=== PATIENT | female | born 1960 | race Caucasian/White ===

== ENCOUNTER 2022-09-16 08:59 | Outpatient (CLI) | payer MEDICAID, SELFPAY ==
[2022-09-16 08:47] LABS: Hematocrit 41.8 % (33.0-51.0); Hemoglobin* 13.9 gm/dL (12.0-16.0); Mean Corpuscular HGB Conc 33 gm/dL (32-36); Mean Corpuscular Hemoglobin 30 pg (26-34); Mean Corpuscular Volume 91 fL (80-100); Platelet Count* 187 K/uL (140-440); RDW Coefficient of Variation % 11.7 % (11.5-15.5); White Blood Count* 4.64 K/uL (4.50-11.00)
[2022-09-16 08:48] LABS: Basophils Percent Auto 0.6 % (0.0-3.0); Eosinophils Percent Auto 3.9 % (0.0-7.0); Immature Granulocytes Pct Auto 0.2 %; Lymphocytes Percent Auto 26.5 % (20-44); Monocytes Percent Auto 6.5 % (0.0-11.0); Neutrophils Percent Auto 62.3 % (42.0-72.0); Slide Review Reflex No
[2022-09-16 09:47] LABS: Chloride* 108 mmol/L (96-114)
[2022-09-16 09:48] LABS: Albumin* 4.3 g/dL (3.3-5.0); Potassium* 4.7 mmol/L (3.6-5.1); Sodium* 141 mmol/L (135-149)
[2022-09-16 09:50] LABS: Cholesterol* 208 mg/dL (90-199); Creatinine* 0.9 mg/dL (0.5-1.5); Estimated Glomerular Filt Rate 71 ml/min
[2022-09-16 09:51] LABS: Alanine Aminotransferase* 21 U/L (4-35); Alkaline Phosphatase* 76 U/L (40-150); Aspartate Amino Transferase* 59 U/L (12-35); Bilirubin Total* 0.5 mg/dL (0.1-1.5); Blood Urea Nitrogen* 13 mg/dL (7-30); Calcium* 9.1 mg/dL (8.4-10.6); Carbon Dioxide* 27 mmol/L (20-32); Glucose* 86 mg/dL (60-115); Total Protein* 6.9 g/dL (6.0-8.3); Triglycerides* 113 mg/dL (40-149)
[2022-09-16 09:52] LABS: HDL Cholesterol* 70 mg/dL (>=50); LDL Cholesterol Calculated 115 mg/dL (<100)
[2022-09-16 10:08] LABS: Vitamin D 25 Hydroxy* 43 ng/mL (30-80)
[2022-09-16 10:39] LABS: Vitamin B12* 440 pg/mL (243-894)
== END 2022-09-16 09:00 | disposition home or self-care (01) ==
PROVIDERS: PCP Family Medicine; Visit Provider Family Medicine
DX: Z00.00 Encounter for general adult medical examination without abnormal findings (principal); D51.0 Vitamin B12 deficiency anemia due to intrinsic factor deficiency; K29.40 Chronic atrophic gastritis without bleeding; E78.5 Hyperlipidemia, unspecified
CPT/HCPCS: 80053; 80061; 82306; 82607; 85025

== ENCOUNTER 2022-10-16 13:19 | Outpatient (CLI) | payer MEDICAID, SELFPAY ==
--- NOTE | 2022-10-16 13:20 | CRLHL7_ITS ---
For Patients: As a result of the Cures Act, medical imaging exams and procedure reports are released immediately into your electronic medical record. You may view this report before your referring provider. If you have questions, please contact your health care provider. BILATERAL SCREENING MAMMOGRAM WITH COMPUTER-AIDED DETECTION AND TOMOSYNTHESIS TECHNIQUE: CC and MLO views were obtained. These mammographic images have been obtained using full-field digital technique. These mammographic images were interpreted with the benefit of computer-aided detection. Breast Tomosynthesis was used in this interpretation. COMPARISON FILM: 09/08/21, 07/17/20, 09/04/19. FINDINGS: The breasts are heterogeneously dense, which may obscure small masses IMPRESSION: There is no radiographic evidence for malignancy. ASSESSMENT: BI-RADS Category 1: Negative RECOMMENDATION: Routine screening mammogram in 1 year. A lay language report of this examination will be provided to the patient. MAREN ALCALA M.D. Diagnostic/Nuclear Medicine Radiologist [email or web address] SELENA:[email or web address] Transcribed: 3:37 p.mElidia rosado/Dictated by: Maren Alcala MD @ 10/19/2022 8:33:00 AM (Electronically Signed)
== END 2022-10-16 13:20 | disposition home or self-care (01) ==
PROVIDERS: PCP Family Medicine; Visit Provider Family Medicine
DX: Z12.31 Encounter for screening mammogram for malignant neoplasm of breast (principal)
CPT/HCPCS: 77063; 77067

== ENCOUNTER 2023-08-29 08:32 | Emergency (ER) | payer MEDICARE, BC, MEDICAID, SELFPAY ==
[2023-08-29 08:35] VITALS: BP 109/69; PULSE 57; RESP 16; TEMP 36.1; O2SAT 98; BMI 25.0
--- NOTE | 2023-08-29 08:40 | ED.NURSE ---
Pt L index finger soaking in hibiclens.
--- NOTE | 2023-08-29 08:57 | ED_ITS ---
HPI - General Adult General Chief complaint: Laceration/Wound Stated complaint: L finger lac Time Seen by Provider: 08/29/23 08:46 History of Present Illness HPI narrative: Patient was in the kitchen using a knife in cutting and cut avulsed some skin on the lateral aspect of her distal index finger. She is up-to-date on tetanus within last 5 years She is not on any blood thinners. Moving her hand fully. That was the only injury. Related Data Home Medications Medication Instructions Recorded Confirmed cyanocobalamin (vitamin B-12) mcg IM MONTHLY 09/25/22 09/25/22 1,000 mcg/mL injection solution Previous Rx's Medication Instructions Recorded simvastatin 20 mg tablet 20 mg PO QDAY #90 tabs 09/25/22 Allergies Allergy/AdvReac Type Severity Reaction Status Date / Time ragweed pollen Allergy Severe runny Verified 09/25/22 12:50 nose, itchy, fatigue and sore throat Review of Systems Narrative: No history of diabetes or prior skin problems or bleeding issues. [facility] Medical History Dairy product intolerance (2014) ?K90.49 - Malabsorption due to intolerance, not elsewhere classified (ICD-10) Autoimmune gastritis (2019) ?K29.40 - Chronic atrophic gastritis without bleeding (ICD-10) Pernicious anemia (02/07/20) ?D51.0 - Vitamin B12 deficiency anemia due to intrinsic factor deficiency (ICD-10) Malignant melanoma of back (2017) ?C43.59 - Malignant melanoma of other part of trunk (ICD-10) Insomnia ?G47.00 - Insomnia, unspecified (ICD-10) History of vitamin D deficiency ?Z86.39 - Personal history of other endocrine, nutritional and metabolic disease (ICD-10) History of migraine ?Z86.69 - Personal history of other diseases of the nervous system and sense organs (ICD-10) History of anemia ?Z86.2 - Personal history of diseases of the blood and blood-forming organs and certain disorders involving the immune mechanism (ICD-10) Dry eyes ?H04.123 - Dry eye syndrome of bilateral lacrimal glands (ICD-10) Constipation ?K59.00 - Constipation, unspecified (ICD-10) Surgical History Status post dilation and curettage ?Z98.890 - Other specified postprocedural states (ICD-10) History of melanoma excision (07/2017) ?Z98.890 - Other specified postprocedural states (ICD-10) ?Z85.820 - Personal history of malignant melanoma of skin (ICD-10) History of esophagogastroduodenoscopy (EGD) (11/30/18) ?Z98.890 - Other specified postprocedural states (ICD-10) Family History Sister Basal cell carcinoma Paternal Grandfather Colon cancer, Onset Age: 70 Father Myocardial infarction, Onset Age: 69 Polymyalgia rheumatica Social History Narrative: , [place]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, 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 exercises 4 times a week, swimming, yoga, strength training non-smoker social drinker- 2-3/week Smoking Status: Never smoker Little interest or pleasure in doing things: not at all Feeling down, depressed, or hopeless: not at all Exam Narrative: Exam Narrative: Objective: Skin avulsion on the lateral aspect of the left index finger proximally 5 x 4 mm Const: Vital Signs, click to edit/add: Vital Signs - 24 hr 08/29/23 08:35 Temperature 97.0 F L Pulse Rate [Pulse Oximeter] 57 L Respiratory Rate 16 Blood Pressure [Ri ght Upper Arm] 109/69 Pulse Oximetry 98 Oxygen Delivery Me thod Room Air Course Vital Signs Vital signs: Initial Vital Signs Temperature 97.0 F L 08/29/23 08:35 Temperature Source Temporal Artery Scan 08/29/23 08:35 Pulse Rate 57 L 08/29/23 08:35 Respiratory Rate 16 08/29/23 08:35 Blood Pressure 109/69 08/29/23 08:35 Blood Pressure Mean 82 08/29/23 08:35 Blood Pressure Position Sitting 08/29/23 08:35 Pulse Oximetry 98 08/29/23 08:35 Oxygen Delivery Method Room Air 08/29/23 08:35 Vital Signs Temperature 97.0 F L 08/29/23 08:35 Pulse Rate 57 L 08/29/23 08:35 Respiratory Rate 16 08/29/23 08:35 Blood Pressure 109/69 08/29/23 08:35 Pulse Oximetry 98 08/29/23 08:35 Oxygen Delivery Method Room Air 08/29/23 08:35 Temperature 97.0 F L 08/29/23 08:35 Pulse Rate 57 L 08/29/23 08:35 Respiratory Rate 16 08/29/23 08:35 Blood Pressure 109/69 08/29/23 08:35 Pulse Oximetry 98 08/29/23 08:35 Oxygen Delivery Method Room Air 08/29/23 08:35 Medical Decision Making MDM Narrative Medical decision making narrative: The finger was soaked in sterile solution, then covered with surgery foam x2 and wrapped in gauze and a finger dressing will be applied. Good hemostasis was noted. Discharge Plan Discharge Clinical Impression: Avulsion of skin Patient Disposition: Home w/ Parent or Adult Condition: Improved Additional Instructions: Keep covered in the gauze and leave covered for 2 days, then may soak off in soapy water, then covered with a bandage. Avoid blood thinners, Tylenol is okay, avoid aspirin Advil or Aleve. Return if problems or concerns. Watch for redness or drainage or infection. Although this is very unlikely given the type of wound this is. Return if bleeding through the dressing occurs or other abnormality or concern. Activity Level: Light activity Discharge Diet: Regular Prescriptions: No Action cyanocobalamin (vitamin B-12) 1,000 mcg/mL solution IM MONTHLY simvastatin 20 mg tablet 20 mg PO QDAY Qty: 90 4RF Follow Up/Referrals: Enid Oquendo MD [Primary Care Provider] - Stand Alone Forms: [facility] Info Instructions
--- NOTE | 2023-08-29 08:59 | ED.NURSE ---
bandaged pt L index finger lac with surgifoam and gauze. Cleaning Custodian applied tube gauze over MD bandage.
== END 2023-08-29 09:09 | disposition home or self-care (01) ==
PROVIDERS: Emergency Provider Family Medicine; PCP Family Medicine
DX: S61.211A Laceration without foreign body of left index finger without damage to nail, initial encounter (principal); W26.0XXA Contact with knife, initial encounter
CPT/HCPCS: 99283

== ENCOUNTER 2023-09-24 07:35 | Outpatient (CLI) | payer MEDICARE, BC, MEDICAID, SELFPAY | END 2023-09-24 07:36 | disposition home or self-care (01) | PROVIDERS: PCP Family Medicine; Referring Provider Family Medicine; Visit Provider Family Medicine | DX: Z00.00 Encounter for general adult medical examination without abnormal findings (principal); D51.0 Vitamin B12 deficiency anemia due to intrinsic factor deficiency; E78.5 Hyperlipidemia, unspecified; R74.01 Elevation of levels of liver transaminase levels; R53.83 Other fatigue; E53.8 Deficiency of other specified B group vitamins; R79.89 Other specified abnormal findings of blood chemistry | CPT/HCPCS: 80053; 80061 ==

== ENCOUNTER 2023-10-01 08:17 | Outpatient (CLI) | payer MEDICARE, BC, SELFPAY ==
--- OUTSIDE RECORDS SUMMARY | 2023-10-06 21:13 | XMS_ITS | Clinical Summary ---
Author Name Unknown Organization [facility] Address [place], [place] [address] Care Team Providers Care Business Technology Analyst Name Role Phone Thaddeus Cruz MD Primary Care Provider Allergies No known active allergies Medications Medication Sig Dispensed Refills Start Date End Date Status progesterone micronized (PROMETRIUM) 100 mg capsule Take 100 mg by mouth at bedtime. 0 Active estradiol (ESTRACE) 0.5 mg tablet Take 0.5 mg by mouth once daily. 0 Active Cholecalciferol, Vitamin D3, (VITAMIN D-3) 5,000 unit tab Take 5,000 Units by mouth once daily. 0 Active calcium carbonate-vitamin D3, 600 mg-400 unit, 600 mg(1,500mg) -400 unit tablet Take 2 tablets by mouth once daily with a meal. 200 tablet 4 04/15/2018 Active azithromycin (ZITHROMAX) 250 mg tabletIndications:Upp er respiratory tract infection, unspecified type Take 500 mg (2 tabs) by mouth on day 1, then 250 mg (1 tab) daily for days 2-5. 6 tablet 0 04/15/2018 Active Active Problems Problem Noted Date Diagnosed Date Melanoma of upper back excluding scapular region 07/07/2017 Routine general medical exam ination at a health care facility 01/16/2009 Overview: Lipids - 02/03/07 , cholesterol - 189, LDL - 114, TG - 69 Dexa- none found mammo-06/19/05 Colonoscopy 01/2014 normal repeat in 10 years Pap/pelvic -01/14/07 Thyroid- none found Hep B-none found Tetanus-2005 Diabetic-no Migraine, unspecified, witho ut mention of intractable migraine without mention of status migrainosus Anemia, unspecified Irritable bowel syndrome Immunizations Name Administration Dates Next Due Influenza, IIV3 (Age >=3 years) 09/16/2006,10/06 Influenza, IIV4 06/30/2017,09/04/2016,08/13/2015 Td (Age >=7 Years) 02/03/1999 Tdap 06/30/2017,12/09/2005 Family History Medical History Relation Name Comments Asthma Father Hypertension Father Other Father Heart Attack/TB Cancer-colon Maternal Grandfather Allergies Mother Hay-Fever Other Mother Migraines Relation Name Status Comments Father Alive Maternal Grandfather Mother Alive Social History Tobacco Use Types Packs/Day Years Used Date Smoking Tobacco: Never Smokeless Tobacco: Never Alcohol Use Standard Drinks/Week Comments Yes 0 (1 standard drink = 0.6 oz pur e alcohol) occasional PHQ-2 Answer Date Recorded PHQ-2 Score 0 11/26/2018 Sex and Gender Information Value Date Recorded Sex Assigned at Not on file Gender Identity Not on file Sexual Orientation Not on file Obstetrics History Last Filed Vital Signs Vital Sign Reading Time Taken Comments Blood Pressure 113/77 04/15/2018 2:53 PM CDT Pulse 66 04/15/2018 2:53 PM CDT Temperature 36.8 ??C (98.2 ??F) 04/15/2018 2:53 PM CD T Respiratory Rate 16 07/07/2017 12:3 0 PM CDT Oxygen Saturation 99% 04/15/2018 2:53 PM CDT Inhaled Oxygen Concentration - - Weight 70.6 kg (155 lb 11.2 oz) 04/15/2018 2:53 PM CDT Height 168.5 cm (5' 6.34) 04/15/2018 2:53 PM CD T Body Mass Index 24.87 04/15/2018 2:53 PM CDT Plan of Treatment Health Maintenance Due Date Last Done Comments COVID-19 vaccine series (#1) 1958 HIV for age 15-65 1973 Hepatitis C screening for ag e 18-79 1976 Zoster (shingles) series for age 50+ (1 of 2) 2008 Lipids for age 45-75 01/25/2014 01/25/2009, 02/04/20 07 Mammogram for age 45-75 08/13/2016 08/13/20 15, 12/11/2013, 01/25/2009 BMI (ht and wt on same day) for age 18+ 04/15/2019 04/15/2018 Depression screening for age 12+ 04/15/2019 04/15/20 18 DEXA/DXA scan for age 65+ 2023 Pneumococcal series for age 65+ (1 of 1 - PCV) 2023 Influenza for age 65+ 05/28/2023 06/30/2017 , 09/04/2016, 08/13/2015, Additional history exists Pap test for age 21-65 08/28/2023 0, 08/28/2020, 01/14/2007, Additional history exists Colonoscopy through age 75 02/15/2024 02/14/2014, Tetanus booster 06/30/2027 06/30/2017, 11/25, 02/03/1999 Tdap Completed 06/30/2017, 12/09/2005 Advance Directives Latest Code Status on File Code Status Date Activated Date Inactivated Comments Full Code 07/07/2017 10:45 AM 07/07/2017 3:01 PM Care Teams Business Technology Analyst Relationship Specialty Start Date End Date Thaddeus Cruz MD [address] [place] [address] PCP - General 09/16/06
--- OUTSIDE RECORDS SUMMARY | 2023-10-06 21:13 | XMS_ITS | Continuity of Care Document ---
Author Name Unknown Organization [facility] Address [address] [address] [place] [address] Phone Care Team Providers Care Rn Admission Name Role Phone Ede Bermudez MD Unavailable Unavailable Allergies, Adverse Reactions, Alerts Substance Reaction Status Criticality No Known Allergies Active No Inform ation WARNIN allergy(ies) could not be collected because the type is not supported. Please contact the source practice for further details. Medications Medication Instructions Dosage Effective Dates (start - stop) Status Comments Syringe 3 mL 25 gauge x 1 use as directed for VitB12 - Active cyanocobalamin (vit B-12) 1,000 mcg/mL injection solution INJECT 1ML UNDER THE SKIN ONCE MONTHLY OFFICE VISIT 01/28/22 FOR REFILLS - Active simvastatin 10 mg tablet take 1 tablet b y oral route every day in the evening 10 MG - Active Calcium 600 600 mg calcium (1,500 mg) tablet take 2 by Oral route every day 2 - Active estradiol 0.5 mg tablet take 1 tablet by oral route every 2 days 0.5 MG - Active medroxyprogesterone 2.5 mg tablet take 1 tablet by oral route every 2 days 2.5 MG - Active Stool Softener 50 mg capsule take 1 capsule by oral route every day 50 MG - Active Vitamin D3 2,000 unit tablet take 1 by Oral route every day 1 - Active Syringe 3 mL 25 gauge x 1 use as directed for VitB12 - No Longer Active CYANOCOBALAMIN 1000MCG/ML SOLN INJECT 1ML UNDER THE SKIN ONCE MONTHLY OFFICE VISIT 01/28/22 FOR REFILLS - No Longer Active Procedures Procedure Date Established Level 3 Ugi Endo; W/bx 1/mx Level Iv-surg Path Gross/micro 22 Established Level 4 Routine Serum Collection Hepatic Function Panel Virtual Visit E&m Estab Mod-hi 25-39 Min Routine Serum Collection Gg; Iga, Igd, Igg, Igm, Ea Hepatic Function Panel Cyanocobalamin Offic/outpt E&m Estab Low-mod 9 Ugi Endo; W/bx 1/mx Level Iv-surg Path Gross/micro 19 Immunocytochemistry, Each Antibody Immunohistochemistry, each add''l antibo dy Routine Serum Collection Gg; Ige Vitamin D; 25 Hydroxy Gg; Iga, Igd, Igg, Igm, Ea Offic/outpt E&m Estab Low-mod 9 cancelled appt Offic/outpt E&m New Mod-hi Routine Serum Collection Folic Acid; Serum Hepatic Function Panel Iron Iron Binding Capacity Lipase Cyanocobalamin Ferritin Advance Directives Directive Yes / No Effective Date File Name No Information Encounters Encounter Description Practice Location Reason(s) For Visit Diagnoses Date Provider Providers Copied on Encounter Established Level 3 [facility] MIGUELINA JARAMILL[address] [address], [place], [id number], [place] tel:[phone] [facility] GI Symptoms or Concerns (chief complaint) Previous History Review (chief complaint) Pernicious anemiaColon cancer screening 3 Lara Mera. [address] [facility], [address], [id number], [place]. tel:[phone] Referring Provider: Referral Self, USE FOR SELF REFERRALS. [facility], [address] [address], [place], [place], [id number], [place] tel:[phone] [facility] No Information 3 Anand Antoine. [address] [facility], [address], [id number], [place]. tel:[phone] [facility], [address] [address], [place], [id number], [place] tel:[phone] [facility] No Information 2 Lara Mera. [address], [id number], [place]. tel:[phone] [facility], [address] [address], [place], [id number], [place] tel:[phone] [facility] No Information 2 Lara Mera. [address] [facility], [address], [id number], [place]. tel:[phone] [facility], [address] [address], [place], [id number], [place] tel:[phone] [facility] GI Symptoms or Concerns (chief complaint) Chronic atrophic gastritis without bleedingHiatal herniaDiaphragma tic hernia without obstruction or gangreneGastro-e sophageal reflux disease with esophagitis, without bleedingDiaphrag matic hernia without obstruction or gangreneChronic atrophic gastritis without bleeding 2 Lara Mera. [address] [facility], [address], [id number], [place]. tel:[phone] Referring Provider: Referral Self, USE FOR SELF REFERRALS. Established Level 4 [facility], [address] [address], [place], [id number], [place] tel:[phone] [facility] GI Symptoms or Concerns (chief complaint) Previous History Review (chief complaint) Pernicious anemiaHistory of adenomatous polyp of colon 2 Lara Mera. [address] [facility], [address], [id number], [place]. tel:[phone] Referring Provider: Referral Self, USE FOR SELF REFERRALS. [facility] [place], [address] [address], [facility] [place], [id number], [place] tel:[phone] [facility] No Information [address] [place] [address], [id number], [place]. tel:[phone] [facility] [place], [address] [address], [facility] [place], [id number], [place] tel:[phone] [facility] Deficiency of other specified B group vitamins 2 Lara Mera. [address] [facility], [address], [id number], [place]. tel:[phone] [facility] [place], [address] [address], [facility] [place], [id number], [place] tel:[phone] [facility] Nonspec elev of levels of transamns & lactic acid dehydrgnse 0 Lara Mera. [address] [place] [address], [id number], [place]. tel:[phone] Referring Provider: Enid Oquendo MD, [address] [place], [address]. tel:[phone] Virtual Visit E&m Estab Mod-hi 25-39 Min [facility] [place], [address] [address], [facility] [place] [id number], [place] tel:[phone] [facility] GI Symptoms or Concerns (chief complaint) Chronic atrophic gastritis without bleedingElevated AST (SGOT) [address] [place], [place] [address], [id number], . tel:[phone] Referring Provider: Referral Self, USE FOR SELF REFERRALS. [facility] [place], [address] [address], [place], [id number], [place] tel:[phone] [facility] No Information 0 Chidi Balbuena. [address] [place] [address], [id number], . tel:[phone] [facility] [place], [address] [address], [place], [id number], [place] tel:[phone] [facility] Nonspec elev of levels of transamns & lactic acid dehydrgnseDefici ency of other specified B group vitamins May-0 9 No Information Referring Provider: Enid Oquendo MD, [address] [place], [address]. tel:[phone] [facility] [place], [address] [address], [place], [id number], [place] tel:[phone] [facility] Elevated AST (SGOT)Burping 9 No Information Offic/outpt E&m Estab Low-mod [facility] [place], [address] [address], [place], [id number], [place] tel:[phone] [facility] GI Symptoms or Concerns (chief complaint) B12 deficiencyEsopha gitisElevated AST (SGOT) 0 9 No Information Referring Provider: Referral Self, USE FOR SELF REFERRALS. [facility] [place], [address] [address], [place], [id number], [place] tel:[phone] [facility] Chronic atrophic gastritis without bleedingChronic atrophic gastritis without bleeding 9 Lara Mera. [address], [id number], . tel:[phone] Referring Provider: Referral Self, USE FOR SELF REFERRALS. [facility] [place], [address] [address], [place], [id number], [place] tel:[phone] [facility] Chronic atrophic gastritis without bleedingNonspec elev of levels of transamns & lactic acid dehydrgnse 9 Lara Mera. [address], [id number], [place]. tel:[phone] Referring Provider: Referral Self, USE FOR SELF REFERRALS. [facility], [address] [address], [place], [id number], [place] tel:[phone] [facility] Elevated AST (SGOT) 9 No Information Offic/outpt E&m Estab Low-mod [facility] [place], [address] [address], [place], [id number], [place] tel:[phone] [facility] GI Symptoms or Concerns (chief complaint) B12 deficiency 9 Xavi Patel. [address], [id number], [place]. tel:[phone] Referring Provider: Referral Self, USE FOR SELF REFERRALS. [facility], [address] [address], [place], [id number], [place] tel:[phone] [facility] No Information 9 [facility] [place] Britt. [address], [id number], [place]. tel:[phone] Referring Provider: Enid Oquendo MD, [address] [place], [address]. tel:[phone] [facility], [address] [address], [place], [id number], [place] tel:[phone] [facility] B12 deficiencyElevat ed AST (SGOT)Chronic atrophic gastritis 9 No Information Offic/outpt E&m New Mod-hi [facility], [address] [address], [place], [id number], [place] tel:[phone] [facility] GI Symptoms or Concerns (chief complaint) BurpingChronic atrophic gastritisSubster nal discomfortEsopha gitisDietary counseling and surveillance 9 No Information Referring Provider: Referral Self, USE FOR SELF REFERRALS. Family History Family Member Type Diagnosis Age At Onset Father Problem (finding) unknown Mother Problem (finding) Alive and well Father Problem (finding) asthma Mother Problem (finding) Cancer, endometrial Father Problem (finding) Myocardial infarction Brother Problem (finding) Alive and well Sister Problem (finding) Alive and well Immunizations Vaccine Date Status Comments Influenza administered Note: [facility] bi-d irectional interface ; Source: Other Registry SARS-COV-2 (COVID-19) vaccin e, mRNA, spike protein, LNP, bivalent booster, preservative free, 50 mcg/0.5 mL or 25 mcg/0.25 mL dose administered Note: [facility] bi-direct ional interface ; Source: Other Registry SARS-COV-2 (COVID-19) vaccin e, mRNA, spike protein, LNP, preservative free, 100 mcg/0.5mL dose or 50 mcg/0.25mL dose administered Note: [facility] bi -directional interface ; Source: Other Registry Seasonal, quadrivalent, recombinant, injectable influenza vaccine, preservative free administered Note: [facility] bi-direct ional interface ; Source: Other Registry SARS-COV-2 (COVID-19) vaccin e, mRNA, spike protein, LNP, preservative free, 30 mcg/0.3mL dose administered Note: [facility] bi-direct ional interface ; Source: Other Registry SARS-COV-2 (COVID-19) vaccin e, mRNA, spike protein, LNP, preservative free, 30 mcg/0.3mL dose administered Note: [facility] bi-direct ional interface ; Source: Other Registry Afluria Qd administered Note: [facility] bi-directional interface ; Source: Other Registry Seasonal, quadrivalent, recombinant, injectable influenza vaccine, preservative free administered Note: [facility] bi-direct ional interface ; Source: Other Registry zoster vaccine recombinant administered N ote: [facility] bi-directional interface ; Source: Other Registry zoster vaccine recombinant administered N ote: [facility] bi-directional interface ; Source: Other Registry Afluria Qd administered Note: [facility] bi-directional interface ; Source: Other Registry Fluzone Quad 6mo or older administered Note: [facility] bi-direct ional interface ; Source: Other Registry Influenza, injectable, MDCK, preservative free Flucelvax Quad Y administered Source: Other Provid er Afluria Qd administered Note: [facility] bi-directional interface ; Source: Other Registry Fluzone Quad 6mo or older administered Note: [facility] bi-direct ional interface ; Source: Other Registry tetanus toxoid, reduced diphtheria toxoid, and acellular pertussis vaccine, adsorbed administered Note: [facility] b i-directional interface ; Source: Other Registry Afluria Qd administered Note: [facility] bi-directional interface ; Source: Other Registry Fluzone Quad 6mo or older administered Note: [facility] bi-direct ional interface ; Source: Other Registry Afluria Qd administered Note: [facility] bi-directional interface ; Source: Other Registry Fluzone Quad 6mo or older administered Note: [facility] bi-direct ional interface ; Source: Other Registry Influenza, seasonal, injectable administe red Note: [facility] bi- directional interface ; Source: Other Registry tetanus toxoid, reduced diphtheria toxoid, and acellular pertussis vaccine, adsorbed administered Note: [facility] b i-directional interface ; Source: Other Registry Influenza, seasonal, injectable administe red Note: [facility] bi- directional interface ; Source: Other Registry tetanus and diphtheria toxoi ds, adsorbed, preservative free, for adult use (2 Lf of tetanus toxoid and 2 Lf of diphtheria toxoid) administered Note: [facility] bi-direct ional interface ; Source: Other Registry Payers Payer name Insurance type Covered libertarian ID Authoriza tion(s) Rocael CONTRERAS [id number] Social History Type Description Quantity Date Captured Comments Alcohol Use Details Unknown Caffeine Use Details Unknown Tobacco Use Status No Information Smoking Status undefined Sex Female Vital Signs Date / Time: Height Weight BMI Pulse Rate Blood Pressure Temperature Respiratory Rate Body Surface Area Head Circumference Head Circ. Percentile Wt./Daron. Percentile BMI percentile Pulse Ox Inhaled Ox 2:26 PM 66.00 in 70.760 kg (156.00 lbs) 25.1 8 kg/m pretty (2) Chief Complaint And Reason For Visit From encounter dated '02/09/2023 14:26'. GI Symptoms or Concerns (chief complaint). Description: Kathrine comes in for a followup and needsa refill on the B12 and needles. Generally, she has been feeling fine without any symptoms. No reflux recently. She is not on any medications for that. She had B12 and iron checked as well as liver tests. Her AST remains elevated apparently. I do not have any of the laboratory results. She very rarely drinks alcohol. Previous ultrasound did not show fatty liver, gallstones, or other abnormalities. Previous laboratory tests have been unremarkable.No family history of stomach cancer.She thinks she had her last colonoscopy done several years ago and she was told 10 years for followup, which would be due in 2024, she thinks. Previous History Review (chief complaint). Description: This is a 62-year-old female with a historyof pernicious anemia, GERD, increased liver function tests. 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 Serologies confirmed this as well. No dysplasia on biopsies. Her B12 is low, she is on replacement. Last B12 I have was 462 a few months ago and that was fine. Her iron was low. I send her information on repleting iron. She lost that note. We reviewed it again today.She states that she has had a colonoscopy done elsewhere and that was a few years ago. She gets away during the chau on a [place] in the [place] months. CPK was normal previously. Reason For Referral Reason For Referral No Information Plan Of Treatment Date Type Action Status Goal Lifestyle education jeannein g diet completed Referral Ordered: Colonoscopy Appointment date/timeframe: First Available ordered Referral Ordered: Hepatic Function Panel Appointment date/timeframe: 05/30/2019 ordered Referral Ordered: Specifically looking for work up of abnormal AST-hepatitis studies etc. ordered Referral Ordered: OK to cancel CBC and Vitamin D scheduled for future draw. ordered Referral Ordered: Actin (Smooth Muscle) Antibody Appointment date/timeframe: 12/15/2018 ordered Referral Ordered: Ultrasound Liver Appointment date/timeframe: 11/18/2018 ordered Referral Ordered: Antinuclear Antibodies, CAROLE, IFA Appointment date/timeframe: 12/15/2018 ordered Referral Ordered: Vitamin B12 Appointment date/timeframe: 12/15/2018 ordered Referral Ordered: EGD Appointment date/timeframe: 09/02/2019 ordered Referral Ordered: EGD with extensive biopsies (atrophic gastritis) ordered Referral Ordered: Immunoglobulins A/E/G/M, Serum Appointment date/timeframe: 12/15/2018 ordered Referral Ordered: Start B12 1000mcg sq weekly x 4, then q month. Needs teaching visit. ordered Referral Ordered: CBC w/diff Appointment date/timeframe: 12/15/2018 ordered Referral Ordered: Vitamin D, 25-Hydroxy Appointment date/timeframe: 12/15/2018 ordered Referral Ordered: Antimitochondrial Ab (AMA), Qn Appointment date/timeframe: 12/15/2018 ordered Referral Ordered: Please get records from her primary in [facility]. Thanks. ordered Future Order: Lab Order Antimito chondrial Ab (AMA), Qn ([id number]), Body Site: Left Antecubital Fossa, Appointment on: Ordered History Of Present Illness Encounter Date Complaint History Of Prese nt Illness GI Symptoms or Concerns Rebecca webb comes in for a followup and needs a refill on the B12 and needles. Generally, she has been feeling fine without any symptoms. No reflux recently. She is not on any medications for that. She had B12 and iron checked as well as liver tests. Her AST remains elevated apparently. I do not have any of the laboratory results. She very rarely drinks alcohol. Previous ultrasound did not show fatty liver, gallstones, or other abnormalities. Previous laboratory tests have been unremarkable.No family history of stomach cancer.She thinks she had her last colonoscopy done several years ago and she was told 10 years for followup, which would be due in 2024, she thinks. Previous History Review This is a 62-year-old female with a history of pernicious anemia, GERD, increased liver function tests. 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 Serologies confirmed this as well. No dysplasia on biopsies. Her B12 is low, she is on replacement. Last B12 I have was 462 a few months ago and that was fine. Her iron was low. I send her information on repleting iron. She lost that note. We reviewed it again today.She states that she has had a colonoscopy done elsewhere and that was a few years ago. She gets away during the chau on a boat in the [facility] for several months. CPK was normal previously. GI Symptoms or Concerns Previous History Review This is a 61-year-old female with pernicious anemia, chronic atrophic gastritis, and B12 deficiency. She has history of severe esophagitis, and increased liver tests. No family history of stomach cancer. She had EGD done by me on 11/30/2018 and there is possible Powers's esophagus, but biopsies were negative for that. 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 Subsequent anti-parietal cell antibody was strongly positive, intrinsic factor lab test negative. B12 was low at 151, rechecked on supplementation and came up to 294. She had anemia before this. AST has been elevated and hepatitis C antibody, CAROLE, anti-smooth muscle antibody, SPEP, iron, and celiac tests in all were negative. Ultrasound in 10/2018 was negative, no obvious definitive fatty liver, no other abnormalities. Previous History Review This is a 61-year-old female with pernicious anemia, chronic atrophic gastritis, and B12 deficiency. She has history of severe esophagitis, and increased liver tests. No family history of stomach cancer. She had EGD done by me on 11/30/2018 and there is possible Powers's esophagus, but biopsies were negative for that. 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 Subsequent anti-parietal cell antibody was strongly positive, intrinsic factor lab test negative. B12 was low at 151, rechecked on supplementation and came up to 294. She had anemia before this. AST has been elevated and hepatitis C antibody, CAROLE, anti-smooth muscle antibody, SPEP, iron, and celiac tests in all were negative. Ultrasound in 10/2018 was negative, no obvious definitive fatty liver, no other abnormalities. Previous History Review GI Symptoms or Concerns This is a 61-year-old female with a history of pernicious anemia, GERD, increased liver function tests. Previous upper endoscopy in 2018 confirmed the atrophic autoimmune gastritis. Serologies confirmed this as well. No dysplasia on biopsies. Her B12 is low, she is on replacement. Last B12 I have was 462 a few months ago and that was fine. Her iron was low. I send her information on repleting iron. She lost that note. We reviewed it again today.She states that she has had a colonoscopy done elsewhere and that was a few years ago. She is due for repeat colonoscopy, apparently per their recommendations. She has been overall feeling fine. She does get regurgitation. She has not mentioned this before. She states she will regurgitate after eating and that tends to come and go. It can happen every day. Might go for a week or 2 and then stop, but then recurs later. No pyrosis with this. No abdominal pain, nausea or vomiting. No dysphagia.She gets away during the chau on a GI Symptoms or Concerns GI Symptoms or Concerns This is a 59-year-old female who we are doing a virtual visit on. The patient is in a private setting, alone. I did get consent to proceed with the video visit.The patient has a history of pernicious anemia, chronic atrophic gastritis, and B12 deficiency. She has history of severe esophagitis, and increased liver tests. During the 22-minute video visit, majority time was spent with medical counseling. There was also 12-minute medical record review for a total of 34 minutes.Overall, the patient is feeling well. She does need a refill of her B12 injections that she is doing monthly now. She is not having any heartburn and is off the PPI and Carafate, so her medications were updated. No family history of stomach cancer. She did make a change because she went on a boat for 5 months and with that, ate completely differently. This was a dream to do this. She did lose weight. She cut out dairy (she thinks she is likely lactose intolerant). She thinks she had colonoscopy 3 to GI Symptoms or Concerns This milton y nice 58-year-old woman who is here today in followup of her severe esophagitis, recent diagnosis of atrophic gastritis, and B12 deficiency, and mildly abnormal liver enzymes.We first saw her in clinic about 2 months ago, because she was having trouble with reflux symptoms and belching. A recent endoscopy had shown severe esophagitis with sloughing mucosa, and biopsies had shown atrophic gastritis.She had improved on iiva-ien-cbkbldz Nexium by the time we saw her, but still was fairly symptomatic. Carafate was added. Because of her atrophic gastritis, B12 and iron studies were checked, and a B12 was extremely low at 151. She was started on replacement. Additionally, her AST was noted to be elevated and further workup ensued.Since we last saw her 2 months ago, she had a repeat endoscopy which showed healed esophageal mucosa. Biopsies were negative for Powers's. Her gastric biopsies again showed chronic atrophic gastritis and reactive gastropathy. There wa GI Symptoms or Concerns Rebecca Ramos is a pleasant 58-year-old female who is presenting for B12 injection teaching.The patient follows with Dr. Soria. She was found to have a low vitamin B12 level at 150 on November 01. She was instructed to start taking 1 mL of B12 once a week for 4 weeks and then 1 month thereafter.The patient presented to clinic with the appropriate supplies in medication. We reviewed sterile technique as well as appropriately drawing up the correct dosage amount. She was able to successfully inject 1 mL of cyanocobalamin into her right thigh. All of the medication was appropriately injected. She did not have any local side effects. She tolerated the injection well without any side effects.She has refills available on her B12 through her pharmacy. She did get the appropriate gauge needle as well.She will steel pickler her sharps container from her pharmacy for proper disposal.Once her prescription is finished, she will follow up with Dr. 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 The most prominent and bothersome recently has been burping for the last several years. She says it is worse when she drinks coffee. She at times regurgitates food. She gets a feeling of discomfort in her substernal area, which feels like she needs to burp. Sometimes ,she makes herself burp in order to relieve the pressure. This substernal discomfort and sense of needing to burp is worse when she has movements such as in the car. It is worse at the end of the day, unless she drinks coffee, which makes it worse earlier in the day. It is not always after eating. She does not have much heartburn.She recently had an endoscopy because of these symptoms. The report from [facility] showed diffuse inflammation in t Functional Status Date Functional Assessmen t No Information Instructions Date Instruction Additional Infor ezra RECOMMENDATIONS1. Shyla perez will stop the Carafate now that her esophagitis has healed.2. She will continue kybx-lnb-mlavegl Nexium since that seemed to be the most effective at helping her symptoms of reflux/belching.3. If she continues to be symptomatic, we may want to consider gastric emptying study, esophageal motility studies.4. We will recheck her B12 level in several months and we will recheck liver enzymes as well.5. She will follow up in 1 year and call sooner if she has ongoing problems in the interim.6. Probably should repeat her endoscopy at 3 years with extensive biopsies.7. All the above was discussed with her at length.Thanks again for asking us to see this nice woman. Related to B12 deficiency Please get all labs done at her primary's office for the past 4 years Related to Elevated AST (SGOT) Specifically looking for work up of abnormal AST-hepatitis studies etc. Related to Elevated AST (SGOT) OK to cancel CBC and Vitamin D scheduled for future draw. Related to Elevated AST (SGOT) RECOMMENDATIONS1. We will check labs today as outlined, B12, folate, iron studies, liver enzymes, lipase.2. She will continue her nnjo-fzt-pfasicc generic Nexium.3. We will add Carafate 1 g b.i.d. an hour before noon meals and at bedtime.4. She will be careful to take her pills with plenty of fluids and stay upright after she takes them.5. She will follow up in 6 weeks.6. She lives much closer to [place], so if she wants to follow up there, that might be more convenient for her.7. If she is not improving with the above measures, consider increasing her PPI, consider esophageal manometry, possibly biliary evaluation, gastric emptying study, etc.7. All the above was discussed with her at length.Thanks again for asking us to see this very nice woman with you. Related to Burping Lifestyle education regarding di et Related to Dietary counseling and surveillance Please get records f rom her primary in [place], [facility]. Thanks. 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 There are no guidelines to tell us how long followup should be necessarily. I gave her a refill for the year for the B12 and the needles. I would like to see the results of the laboratory work done and I will have my office get a hold of the blood work. Screening colonoscopy - It sounds like she is coming due in 2024. That is when we will repeat the upper endoscopy, we would likely be able to do them both on the same day sedating just once. Patient Care Teams Name Effective Dates (start - stop) Status Members No Information
== END 2023-10-01 08:18 | disposition home or self-care (01) ==
LOC: NFLDREF 10-06 21:11
PROVIDERS: PCP Family Medicine; Referring Provider Family Medicine; Visit Provider Family Medicine
DX: R53.83 Other fatigue (principal); M85.80 Other specified disorders of bone density and structure, unspecified site; D51.0 Vitamin B12 deficiency anemia due to intrinsic factor deficiency
CPT/HCPCS: 82306; 82607; 82728; 84443

== ENCOUNTER 2023-10-18 13:24 | Outpatient (CLI) | payer MEDICARE, BC, SELFPAY ==
--- NOTE | 2023-10-18 13:20 | CRLHL7_ITS ---
For Patients: As a result of the Cures Act, medical imaging exams and procedure reports are released immediately into your electronic medical record. You may view this report before your referring provider. If you have questions, please contact your health care provider. BILATERAL DIGITAL SCREENING MAMMOGRAM WITH COMPUTER-AIDED DETECTION AND TOMOSYNTHESIS 10/18/2023 CLINICAL HISTORY: Routine screening exam. COMPARISON: 10/16/2022, 09/08/2021, 07/17/2020, 09/04/2019. TECHNIQUE: Digital mammogram in CC and MLO projections including computer-aided detection (CAD) and tomosynthesis. BREAST COMPOSITION: Heterogeneously dense. FINDINGS: RIGHT Breast: No suspicious findings. LEFT Breast: Focal asymmetric density within the lower outer quadrant 3 cm from the nipple. IMPRESSION: LEFT breast asymmetry/mass. RECOMMENDATIONS: Additional mammographic views of the LEFT breast including 3D spot-compression CC/MLO. LEFT breast ultrasound may also be required. [facility] will contact the patient. A lay language report of this examination will be provided to the patient. BI-RADS Category 0: Incomplete: Need Additional Imaging Evaluation and/or Prior Mammograms for Comparison. Dictated by Carlos Chery MD @ 10/19/2023 8:35:49 AM AMOL/thiago DW/Dictated by: Carlos Chery MD @ 10/19/2023 8:36:00 AM DW/Dictated by: Carlos Chery MD @ 10/19/2023 8:36:00 AM (Electronically Signed)
== END 2023-10-18 13:25 | disposition home or self-care (01) ==
LOC: MAMMO 13:24
PROVIDERS: PCP Family Medicine; Visit Provider Family Medicine
DX: Z12.31 Encounter for screening mammogram for malignant neoplasm of breast (principal); R92.2 Inconclusive mammogram
CPT/HCPCS: 77063; 77067

== ENCOUNTER 2023-10-27 10:31 | Outpatient (CLI) | payer MEDICARE, BC, SELFPAY ==
--- OUTSIDE RECORDS SUMMARY | 2023-10-27 10:40 | XMS_ITS | Clinical Summary ---
Author Name Unknown Organization [facility] Address [place], [place] [address] Care Team Providers Care Pipelines Laborer Name Role Phone Thaddeus Cruz MD Primary [...] 10:45 AM 07/07/2017 3:01 PM Care Teams Pipelines Laborer Relationship Specialty Start Date End Date Thaddeus Cruz MD [address] [place] [address] PCP - General 09/16/06
--- OUTSIDE RECORDS SUMMARY | 2023-10-27 10:40 | XMS_ITS | Continuity of Care Document ---
Author Name Unknown Organization [facility] Address [address] [address] [place] [address] Phone Care Team Providers Care Family Caseworker Name Role Phone Ede Bermudez MD Unavailable [...] 3 [facility] MIGUELINA JARAMILLO [address] [address], [place], [id number], [place] tel:[phone] [facility] GI Symptoms or Concerns (chief complaint) Previous History Review (chief complaint) Pernicious anemiaColon cancer screening 3 Lara Mera. [address] [facility], [address], [id number], [place]. tel:[phone] Referring Provider: Referral Self, USE FOR SELF REFERRALS. [facility], [address] [address], [place], [place], [id number], [place] tel:[phone] [facility] No Information 3 Anand Antoine. [address] [facility], [address], [id number], [place]. tel:[phone] [facility], [address] [address], [place], [place], [id number], [place] tel:[phone] [facility] No Information 2 Lara Mera. [address], [id number], [place]. tel:[phone] [facility], [address] [address], [place], [id number], [place] tel:[phone] [facility] No Information 2 Lara Mera. [address] [facility], [address], [id number], [place]. tel:[phone] [facility], [address] [address], [place], [place], [id number], [place] tel:[phone] [facility] GI Symptoms or Concerns (chief complaint) Chronic atrophic gastritis without bleedingHiatal herniaDiaphragma tic hernia without obstruction or gangreneGastro-e sophageal reflux disease with esophagitis, without bleedingDiaphrag matic hernia without obstruction or gangreneChronic atrophic gastritis without bleeding 2 Lara Mera. [address] [facility], [address], [id number], [place]. tel:[phone] Referring Provider: Referral Self, USE FOR SELF REFERRALS. Established Level 4 [facility], [address] [address], [place], [place], [id number], [place] tel:[phone] [facility] GI Symptoms or Concerns (chief complaint) Previous History Review (chief complaint) Pernicious anemiaHistory of adenomatous polyp of colon 2 Lara Mera. [address] [facility], [address], [id number], [place]. tel:[phone] Referring Provider: Referral Self, USE FOR SELF REFERRALS. [facility] [place], [address] [address], [facility] [place], [id number], [place] tel:[phone] [facility] No Information 2 Lara Mera. [address] [place] [address], [id number], [place]. tel:[phone] [facility] [place], [address] [address], [facility] [place], [id number], [place] tel:[phone] [facility] Deficiency of other specified B group vitamins 2 Lara Mera. [address] [facility], [address], [id number], [place]. tel:[phone] [facility] [place], [address] [address], [facility] [place], [id number], [place] tel:[phone] [facility] Nonspec elev of levels of transamns & lactic acid dehydrgnse 0 Lara Mera. [address] [place] [address], [id number], [place]. tel:[phone] Referring Provider: Enid Oquendo MD, [address] [place], [address]. tel:[phone] Virtual Visit E&m Estab Mod-hi 25-39 Min [facility] [place], [address] [address], [facility] [place], [id number], [place] tel:[phone] [facility] GI Symptoms or Concerns (chief complaint) Chronic atrophic gastritis without bleedingElevated AST (SGOT) [address]era. [address] [place], [place] [address], [id number], . tel:[phone] Referring Provider: Referral Self, USE FOR SELF REFERRALS. [facility] [place], [address] [address], [place], [id number], [place] tel:[phone] [facility] No Information 0 Chidi Balbuena. [address] [place] [address], [id number], . tel:[phone] [facility] [place], [address] [address], [place], [id number], [place] tel:[phone] [facility] Nonspec elev of levels of transamns & lactic acid dehydrgnseDefici ency of other specified B group vitamins May-0 9 No Information Referring Provider: Enid Oquendo MD, [address] [place], [address]. tel:[phone] [facility] [place], [address] [address], [place], [id number], [place] tel:[phone] [facility] Elevated AST (SGOT)Burping 9 No Information Offic/outpt E&m Estab Low-mod [facility] [place], [address] [address], [place], [id number], [place] tel:[phone] [facility] GI Symptoms or Concerns (chief complaint) B12 deficiencyEsopha gitisElevated AST (SGOT) 0 9 No Information Referring Provider: Referral Self, USE FOR SELF REFERRALS. [facility] [place], [address] [address], [place], [id number], [place] tel:[phone] [facility] Chronic atrophic gastritis without bleedingChronic atrophic gastritis without bleeding 9 Lara Mera. [address], [id number], . tel:[phone] Referring Provider: Referral Self, USE FOR SELF REFERRALS. [facility] [place], [address] [address], [place], [id number], [place] tel:[phone] [facility] Chronic atrophic gastritis without bleedingNonspec elev of levels of transamns & lactic acid dehydrgnse 9 Lara Mera. [address], [id number], [place]. tel:[phone] Referring Provider: Referral Self, USE FOR SELF REFERRALS. [facility], [address] [address], [place], [id number], [place] tel:[phone] [facility] Elevated AST (SGOT) 9 No Information Offic/outpt E&m Estab Low-mod [facility] [place], [address] [address], [place], [id number], [place] tel:[phone] [facility] GI Symptoms or Concerns (chief complaint) B12 deficiency 9 Xavi Patel. [address], [id number], [place]. tel:[phone] Referring Provider: Referral Self, USE FOR SELF REFERRALS. [facility], [address] [address], [place], [id number], [place] tel:[phone] [facility] No Information 9 [facility] [place] Britt. [address], [id number], [place]. tel:[phone] Referring Provider: Enid Oquendo MD, [address] [place], [address]. tel:[phone] [facility], [address] [address], [place], [id number], [place] tel:[phone] [facility] B12 deficiencyElevat ed AST (SGOT)Chronic atrophic gastritis 9 No Information Offic/outpt E&m New Mod-hi [facility], [address] [address], [place], [id number], [place] tel:[phone] [facility] GI Symptoms or Concerns (chief complaint) BurpingChronic [...] Registry Payers Payer name Insurance type Covered alliance party ID Authoriza tion(s) Rocael CONTRERAS [id number] Social History Type Description Quantity Date Captured [...] Please get records from her primary in [facility]. Thanks. ordered Future Order: Lab Order Antimito chondrial Ab (AMA), Qn ([id number]), Body Site: Left Antecubital Fossa, Appointment on: [...] the chau on a boat in the [facility] for several months. CPK was normal previously. [...] had shown atrophic gastritis.She had improved on rayx-qet-abxpigj Nexium by the time we saw her, [...] the appropriate gauge needle as well.She will picker her sharps container from her pharmacy for proper disposal.Once her prescription is finished, she will follow up with Dr. 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 The report from [facility] showed diffuse inflammation in t Functional Status Date Functional Assessmen t No Information Instructions Date Instruction Additional Infor ezra RECOMMENDATIONS1. Shyla perez will stop the Carafate now that her esophagitis has healed.2. She will continue bnpa-ebt-suibkqn Nexium since that seemed to be the [...] liver enzymes, lipase.2. She will continue her rqze-slz-ovtxkoh generic Nexium.3. We will add Carafate 1 g b.i.d. an hour before noon meals and at bedtime.4. She will be careful to take her pills with plenty of fluids and stay upright after she takes them.5. She will follow up in 6 weeks.6. She lives much closer to [place], so if she wants to follow up [...] get records f rom her primary in [place], [facility]. Thanks. Related to Chronic atrophic gastritis Assessments [...]
--- NOTE | 2023-10-27 10:45 | CRLHL7_ITS ---
For Patients: As a result of the Cures Act, medical imaging exams and procedure reports are released immediately into your electronic medical record. You may view this report before your referring provider. If you have questions, please contact your health care provider. LEFT BREAST DIGITAL DIAGNOSTIC MAMMOGRAM WITH TOMOSYNTHESIS CLINICAL HISTORY: LEFT breast mass/asymmetry. COMPARISON: 10/18/2023, 10/16/2022, 09/08/2021, 07/17/2020. TECHNIQUE: Digital LEFT mammogram in 2 projections. Real-time ultrasound imaging of LEFT breast with imaging documentation. BREAST COMPOSITION: The breasts are heterogeneously dense, which may obscure small masses FINDINGS: 3D spot-compression CC/MLO LEFT breast mammogram images submitted. Decreased conspicuity of previously noted asymmetric density. No architectural distortion or suspicious calcifications. Targeted LEFT breast ultrasound performed at 4 o`clock 3 cm from the nipple. Normal fibroglandular tissue is present. No fluid collection or mass. No suspicious findings. IMPRESSION: No evidence of malignancy. RECOMMENDATIONS: Routine annual bilateral screening mammography. BI-RADS: 2. Benign. Results and recommendations discussed with the patient. Dictated by Carlos Chery MD @ 10/27/2023 12:44:35 PM/elham be/Dictated by: Carlos Chery MD @ 10/27/2023 12:44:00 PM (Electronically Signed)
--- NOTE | 2023-10-27 11:15 | CRLHL7_ITS ---
For Patients: As a result of the Century Cures Act, medical imaging exams and procedure reports are released immediately into your electronic medical record. You may view this report before your referring provider. If you have questions, please contact your health care provider. PLEASE SEE DIGITAL DIAGNOSTIC LEFT BREAST MAMMOGRAM SAME DAY. [facility]/e be/Dictated by: Carlos Chery MD @ 10/27/2023 12:44:00 PM (Electronically Signed)
== END 2023-10-27 10:32 | disposition home or self-care (01) ==
LOC: MAMMO 10:32
PROVIDERS: PCP Family Medicine; Visit Provider Family Medicine
DX: N63.20 Unspecified lump in the left breast, unspecified quadrant (principal); R92.8 Other abnormal and inconclusive findings on diagnostic imaging of breast
CPT/HCPCS: 76642; 77065; G0279

== ENCOUNTER 2023-11-17 15:16 | Outpatient (CLI) | payer MEDICARE, BC, SELFPAY ==
--- OUTSIDE RECORDS SUMMARY | 2023-11-17 15:25 | XMS_ITS | Clinical Summary ---
Author Name Unknown Organization [facility] Address [place], [place] [address] Care Team Providers Care Skein Bander Name Role Phone Thaddeus Cruz MD Primary [...] 10:45 AM 07/07/2017 3:01 PM Care Teams Skein Bander Relationship Specialty Start Date End Date Thaddeus Cruz MD [address] [place] [address] PCP - General 09/16/06
--- OUTSIDE RECORDS SUMMARY | 2023-11-17 15:25 | XMS_ITS | Continuity of Care Document ---
Author Name Unknown Organization [facility] Address [address] [address] [place] [address] Phone Care Team Providers Care Ballast Inspector Name Role Phone Ede Bermudez MD Unavailable [...] 3 [facility] MIGUELINA JARAMILLO [address] [address], [place], [id number], [place] tel:[phone] [facility] GI Symptoms or Concerns (chief complaint) Previous History Review (chief complaint) Pernicious anemiaColon cancer screening 3 Lara Mera. [address] [facility], [address], [id number], [place]. tel:[phone] Referring Provider: Referral Self, USE FOR SELF REFERRALS. [facility], [address] [address], [place], [place], [id number], [place] tel:[phone] [facility] No Information 3 Anand Antoine. [address] [facility], [address], [id number], [place]. tel:[phone] [facility], [address] [address], [place], [place], [id number], [place] tel:[phone] [facility] No Information 2 Lara Mera. [address], [id number], [place]. tel:[phone] [facility], [address] [address], [place], [id number], [place] tel:[phone] [facility] No Information 2 Lara Mera. [address] [facility], [address], [id number], [place]. tel:[phone] [facility], [address] [address], [place], [id number], [place] tel:[phone] [facility] GI Symptoms or Concerns (chief complaint) Chronic atrophic gastritis without bleedingHiatal herniaDiaphragma tic hernia without obstruction or gangreneGastro-e sophageal reflux disease with esophagitis, without bleedingDiaphrag matic hernia without obstruction or gangreneChronic atrophic gastritis without bleeding 2 Lara Mera. [address] [facility], [address], [id number], [place]. tel:[phone] Referring Provider: Referral Self, USE FOR SELF REFERRALS. Established Level 4 [facility], [address] [address], [place], [place], [id number], [place] tel:[phone] [facility] GI Symptoms or Concerns (chief complaint) Previous History Review (chief complaint) Pernicious anemiaHistory of adenomatous polyp of colon 2 Lara Mera. [address] [facility], [address], [id number], [place]. tel:[phone] Referring Provider: Referral Self, USE FOR SELF REFERRALS. [facility], [address] [address], [facility] [place], [id number], [place] tel:[phone] [facility] No Information [address] L[address]era. [address] [place] [address], [id number], [place]. tel:[phone] [facility], [address] [address], [facility] [place], [id number], [place] tel:[phone] [facility] Deficiency of other specified B group vitamins 2 Lara Mera. [address] [facility], [address], [id number], [place]. tel:[phone] [facility], [address] [address], [facility] [place], [id number], [place] tel:[phone] [facility] Nonspec elev of levels of transamns & lactic acid dehydrgnse 0 Lara Mera. [address] [place] [address], [id number], [place]. tel:[phone] Referring Provider: Enid Oquendo MD, [address] [place], [address]. tel:[phone] Virtual Visit E&m Estab Mod-hi 25-39 Min [facility], [address] [address], [facility] [place], [id number], [place] tel:[phone] [facility] GI Symptoms or Concerns (chief complaint) Chronic atrophic gastritis without bleedingElevated AST (SGOT) [address] [place], [place] [address], [id number], . tel:[phone] Referring Provider: Referral Self, USE FOR SELF REFERRALS. [facility], [address] [address], [place], [id number], [place] tel:[phone] [facility] No Information 0 Chidi Balbuena. [address] [place] [address], [id number], . tel:[phone] [facility], [address] [address], [place], [id number], [place] tel:[phone] [facility] Nonspec elev of levels of transamns & lactic acid dehydrgnseDefici ency of other specified B group vitamins May-0 9 No Information Referring Provider: Enid Oquendo MD, [address] [place], [address]. tel:[phone] [facility], [address] [address], [place], [id number], [place] tel:[phone] [facility] Elevated AST (SGOT)Burping 9 No Information Offic/outpt E&m Estab Low-mod [facility], [address] [address], [place], [id number], [place] tel:[phone] [facility] GI Symptoms or Concerns (chief complaint) B12 deficiencyEsopha gitisElevated AST (SGOT) 0 9 No Information Referring Provider: Referral Self, USE FOR SELF REFERRALS. [facility], [address] [address], [place], [id number], [place] tel:[phone] [facility] Chronic atrophic gastritis without bleedingChronic atrophic gastritis without bleeding 9 Lara Mera. [address], [id number], . tel:[phone] Referring Provider: Referral Self, USE FOR SELF REFERRALS. [facility], [address] [address], [place], [id number], [place] tel:[phone] [facility] Chronic atrophic gastritis without bleedingNonspec elev of levels of transamns & lactic acid dehydrgnse 9 Lara Mera. [address], [id number], [place]. tel:[phone] Referring Provider: Referral Self, USE FOR SELF REFERRALS. [facility], [address] [address], [place], [id number], [place] tel:[phone] [facility] Elevated AST (SGOT) 9 No Information Offic/outpt E&m Estab Low-mod [facility], [address] [address], [place], [id number], [place] tel:[phone] [facility] GI Symptoms or Concerns (chief complaint) B12 deficiency 9 Xavi Patel. [address], [id number], [place]. tel:[phone] Referring Provider: Referral Self, USE FOR SELF REFERRALS. [facility], [address] [address], [place], [id number], [place] tel:[phone] [facility] No Information 9 [facility] Britt. [address], [id number], [place]. tel:[phone] Referring Provider: Enid Oquendo MD, [address] [place], [address]. tel:[phone] [facility], [address] [address], [place], [id number], [place] tel:[phone] [facility] B12 deficiencyElevat ed AST (SGOT)Chronic atrophic gastritis 9 No Information Offic/outpt E&m New Mod-hi [facility], [address] [address], [place], [id number], [place] tel:[phone] [facility] GI Symptoms or Concerns (chief [...] alliance party ID Authoriza tion(s) Rocael CONTRERAS [id number] Social History Type Description Quantity Date Captured [...] chau on a boat in the [facility] for several months. CPK was [...] Please get records from her primary in [facility]. Thanks. ordered Future Order: Lab Order Antimito chondrial Ab (AMA), Qn ([id number]), Body Site: Left Antecubital Fossa, Appointment on: [...] chau on a boat in the [facility] for several months. CPK was [...] had shown atrophic gastritis.She had improved on xarl-kym-unotzvk Nexium by the time we saw her, [...] the appropriate gauge needle as well.She will turkey picker her sharps container from her pharmacy for proper disposal.Once her prescription is finished, she will follow up with Dr. 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 The report from [facility] showed diffuse inflammation in t Functional Status Date Functional Assessmen t No Information Instructions Date Instruction Additional Infor ezra RECOMMENDATIONS1. Shyla perez will stop the Carafate now that her esophagitis has healed.2. She will continue ddru-eam-acgvhvy Nexium since that seemed to be the [...] liver enzymes, lipase.2. She will continue her kaon-nxy-xbsbqir generic Nexium.3. We will add Carafate 1 g b.i.d. an hour before noon meals and at bedtime.4. She will be careful to take her pills with plenty of fluids and stay upright after she takes them.5. She will follow up in 6 weeks.6. She lives much closer to [place], so if she wants to follow up [...] get records f rom her primary in [place], [facility]. Thanks. Related to Chronic atrophic [...]
--- NOTE | 2023-11-17 15:30 | XR_ITS ---
Patient: VIJAYA Quinn CHILD Facility:?[facility] Patient ID:?[id number] Site Patient ID:?[id number]. Site :?[id number] Study:?DEXA-Bone Density DEXA - Spine/Hips-11/17/2023 4:09:08 PM Ordering Physician:LINETTE Final Report: DXA BONE MINERAL DENSITY STUDY Reason for exam: Osteopenia. Current height (inches): 66.0 Weight (lbs.): 160.0 Menopause age: 52 Ethnicity: White 1. Have you had a previous hip or vertebral fracture? No. 2. Have you had any fractures during your adult life which did not result from significant trauma (e.g., auto accident)? No. 3. Did either of your parents have a hip fracture? Yes. 4. Do you smoke? No. 5. Have you ever taken Glucocorticoids? No. 6. Do you have rheumatoid arthritis? No. 7. Do you have secondary osteoporosis? No. 8. Do you drink 3 or more alcoholic drinks per day? No. 9. Are you being treated for osteoporosis? No. 10. Have you ever taken any of the following medications: Actonel, Evista, Fosamax, Miacalcin, Reclast, Boniva, Forteo, HRT (i.e., estrogen/hormone therapy), Protelos, Prolia, Vitamin D, Calcium, other ? please specify. ANSWER: Yes; vitamin D, calcium. 11. Do you have any of the following medical conditions: Anorexia or bulimia, asthma or emphysema, end stage renal disease, hyperparathyroidism, any seizure disorders, cancer, inflammatory bowel diseases, hysterectomy, other ? please specify. ANSWER: Yes; cancer. 12. What was your maximum height (inches)? 67.5. 13. Do you perform weightbearing exercise regularly? Yes. 14. Do you regularly consume dairy products? Yes. 15. Do you drink caffeinated beverages? Yes. 16. At what age did your period start? 13. 17. Are you premenopausal? No. 18. How many full-term pregnancies have you had? 0. 19. Have you ever missed your period for more than 6 months in a row (not including or menopause)? No. TECHNIQUE: Bone mineral density study was performed using the [facility]. FINDINGS: The results of the study expressed as bone mineral density (BMD) are as follows: Lumbar Spine L1 to L4: BMD: 0.844 g/cm2. T-score: -1.8. Z-score: 0.0. Neck Left: BMD: 0.669 g/cm2. T-score: -1.6. Z-score: -0.1. Right: BMD: 0.655 g/cm2. T-score: -1.8. Z-score: -0.2. Total Left: BMD: 0.804 g/cm2. T-score: -1.1. Z-score: 0.1. Right: BMD: 0.778 g/cm2. T-score: -1.3. Z-score: -0.1. IMPRESSION: Osteopenia. COMPARISON: Compared with scan of 09/16/2017, the bone mineral density has decreased by 10.2% at the spine and increased by 2.2% at the hip. *Comparison exams done prior to 02/2020 were performed on different unit, [employer]. FRAX 10-year Fracture Risk Major Osteoporotic Fracture: 18% Hip Fracture: 1.4% Reported Risk Factors: [place] () Neck BMD = 0.655, BMI = 25.8, parental fracture. MARCELO JACKSON M.D. Diagnostic Radiologist [email or web address] DIANNE/josette D& Transcribed: 2:[address]/Dictated by: Marcelo Jackson MD @ 11/19/2023 11:58:00 AM Signed by:?Marcelo Jackson MD @11/19/2023 3:05:08 PM (Electronic Signature)
== END 2023-11-17 15:17 | disposition home or self-care (01) ==
LOC: RAD 15:17
PROVIDERS: PCP Family Medicine; Visit Provider Family Medicine
DX: M85.80 Other specified disorders of bone density and structure, unspecified site (principal); M85.88 Other specified disorders of bone density and structure, other site; M81.0 Age-related osteoporosis without current pathological fracture
CPT/HCPCS: 77080

== ENCOUNTER 2024-10-10 07:52 | Outpatient (CLI) | payer MEDICARE, BC, SELFPAY | END 2024-10-10 07:53 | disposition home or self-care (01) | LOC: NFLDREF 10-16 04:17 | PROVIDERS: PCP Family Medicine; Referring Provider Family Medicine; Visit Provider Family Medicine | DX: D51.0 Vitamin B12 deficiency anemia due to intrinsic factor deficiency (principal); E78.5 Hyperlipidemia, unspecified; M85.80 Other specified disorders of bone density and structure, unspecified site; R79.89 Other specified abnormal findings of blood chemistry; M81.0 Age-related osteoporosis without current pathological fracture; R74.01 Elevation of levels of liver transaminase levels | CPT/HCPCS: 80053; 80061; 82306; 82607; 82728 ==

== ENCOUNTER 2024-11-22 13:05 | Outpatient (CLI) | payer MEDICARE, BC, SELFPAY | END 2024-11-22 13:06 | disposition home or self-care (01) | LOC: MAMMO 13:07 | PROVIDERS: PCP Family Medicine; Visit Provider Family Medicine | DX: Z12.31 Encounter for screening mammogram for malignant neoplasm of breast (principal) | CPT/HCPCS: 77063; 77067 ==